=== PATIENT | male | born 2000 | race Caucasian/White ===

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

== ENCOUNTER 2019-06-18 23:08 | Emergency (ER) | payer SELFPAY ==
[~2019-06-18] VITALS: Ht 167.6 cm; Wt 55.7 kg
--- NOTE | 2019-06-19 00:54 | NUR ---
PT TO ED WITH C/O VOMITING AND NAUSEA WHENEVER HE EATS. PT DENIES DIARRHEA, REPORTS HE HAD SOME ABOUT X3 DAYS AGO, BUT HAS SINCE RESOLVED, PT DENIES BODY ACHES, FEVER OR ABDOMINAL PAIN. PT CONNECTED TO MONITORING, CHARLA IN ROOM TP MELISSA PT. CALL LIGHT WITHIN REACH.
[2019-06-19 00:55] VITALS: BP 103/75
[2019-06-19] MEDS ORDERED: ONDANSETRON ODT 4 MG ONE (01:06)
[2019-06-19] MEDS ORDERED: ONDANSETRON ODT 4 MG PO ONE (01:30)
[2019-06-19 01:31] LABS: BASOPHILS # (AUTO) 0.02 x10^3/uL (0-0.3); BASOPHILS % (AUTO) 0 % (0-1); EOSINOPHILS # (AUTO) 0.24 x10^3/uL (0-0.8); EOSINOPHILS % (AUTO) 2 % (1-7); LYMPHOCYTES # (AUTO) 3.89 x10^3/uL (1-6.1); LYMPHOCYTES % (AUTO) 37 % (22-44); MD NO; MEAN CORPUSCULAR HEMOGLOBIN 32.3 pg (27.5-34.5); MEAN CORPUSCULAR HGB CONC 34.5 g/dL (33.2-36.2); MEAN CORPUSCULAR VOLUME 93.6 fL (81-97); MEAN PLATELET VOLUME 7.6 fL (7.4-10.4); MONOCYTES # (AUTO) 0.86 x10^3/uL (0-1.4); MONOCYTES % (AUTO) 8 % (2-9); NEUTROPHILS # (AUTO) 5.55 x10^3/uL (1.8-8.0); NEUTROPHILS % (AUTO) 53 % (42-75); PLATELET COUNT 334 x10^3/uL (130-400); RED BLOOD COUNT 4.93 x10^6/uL (4.38-5.82); RED CELL DISTRIBUTION WIDTH 12.8 % (9.4-14.8)
[2019-06-19 01:34] LABS: MICROSCOPIC NOT IND
[2019-06-19 01:36] LABS: ALANINE AMINOTRANSFERASE 27 U/L (12-78); ALBUMIN 4.3 g/dL (3.4-5.0); ANION GAP 7 mmol/L (5-15); CALCIUM 8.9 mg/dL (8.5-10.1); CHLORIDE 109 mmol/L (98-107); CREATININE 0.81 mg/dL (0.7-1.3)
[2019-06-19 01:38] LABS: CULTURE INDICATED? NO
[2019-06-19 01:38] LABS: ALKALINE PHOSPHATASE 93 U/L (45-117); BILIRUBIN,TOTAL 0.7 mg/dL (0.2-1.0)
== END 2019-06-19 02:33 | disposition home or self-care (01) ==
LOC: ED 06-19 02:26
DX: A09 Infectious gastroenteritis and colitis, unspecified (principal); R11.2 Nausea with vomiting, unspecified
CPT/HCPCS: 36415; 80053; 81003; 83690; 85025; 99283; Q0162

== ENCOUNTER 2020-08-04 02:36 | Emergency (ER) | payer SELFPAY ==
[~2020-08-04] VITALS: Ht 167.6 cm; Wt 60.0 kg
[2020-08-04] MEDS ORDERED: ONDANSETRON ODT 8 MG ONE (02:56)
[2020-08-04] MEDS ORDERED: ONDANSETRON ODT 8 MG PO ONE (03:00)
--- NOTE | 2020-08-04 03:05 | NUR ---
Patient dry heaving. Admin meds per mar.
--- NOTE | 2020-08-04 03:06 | NUR ---
No other complaints aside from nausea.
--- NOTE | 2020-08-04 03:26 | NUR ---
Patient sleeping in gurney. Respirations even and unlabored.
--- NOTE | 2020-08-04 04:24 | NUR ---
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 I tried to look for a form even called hothouse worker but unable to provide one. so I told the father that the only thing I can provide is a calling card that he can Email our director to make a complaints. Father insist that form exist and degrading this RN that I am just a nurse. father also states " so you are not going to do anything and I have to pay 1,500 just for this?" I told the father, if that what you think needed, I can call the Doctor and he can talk to him which he agrees.
[2020-08-04] MEDS ORDERED: SODIUM CHLORIDE 0.9% 1,000ML IVBOLUS ONE (04:30)
[2020-08-04] MEDS ORDERED: METOCLOPRAMIDE 5 MG/ML, 2ML ONE (04:45)
[2020-08-04 04:55] VITALS: BP 92/59
[2020-08-04] MEDS ORDERED: METOCLOPRAMIDE 5 MG/ML, 2ML IVPush ONE (05:30)
== END 2020-08-04 05:16 | disposition home or self-care (01) ==
LOC: ED 05:10
DX: F10.120 Alcohol abuse with intoxication, uncomplicated (principal); R11.2 Nausea with vomiting, unspecified; F12.129 Cannabis abuse with intoxication, unspecified; F12.10 Cannabis abuse, uncomplicated; G31.2 Degeneration of nervous system due to alcohol; Z72.9 Problem related to lifestyle, unspecified; Y90.0 Blood alcohol level of less than 20 mg/100 ml
CPT/HCPCS: 96374; 99283; J2765; J7030; Q0162